=== PATIENT | female | born 1935 | race Caucasian/White ===

== ENCOUNTER → 2017-12-03 | Outpatient (CLI) | payer MEDICARE ==
[~2017-12-03] MED LIST: ATEN25TA PO; ATOR10TA69 PO; CALCIUM PLUS D PO; ESOM40CA PO; FEXO180T94 PO; GABA-531 PO; MONT10TA24 PO; SPIR25TA6 PO; ZOLP5TAB8 PO
== END | disposition home or self-care (01) ==
LOC: RAH 11:31
PROVIDERS: ATTEND Internal Medicine
DX: M47.898 Other spondylosis, sacral and sacrococcygeal region (principal); M47.896 Other spondylosis, lumbar region; M85.88 Other specified disorders of bone density and structure, other site; Z96.643 Presence of artificial hip joint, bilateral
CPT/HCPCS: 72100; 72220

== ENCOUNTER → 2018-07-13 | Outpatient (CLI) | payer MEDICARE | END | disposition home or self-care (01) | LOC: RAH 09:40 | PROVIDERS: ATTEND Internal Medicine Cardiovascular Disease | DX: I08.0 Rheumatic disorders of both mitral and aortic valves (principal) | CPT/HCPCS: 93306 ==

== ENCOUNTER → 2019-11-30 | Outpatient (CLI) | payer MEDICARE ==
[~2019-11-30] MED LIST changes: -MONT10TA24 PO; +MONT10TA26 PO
== END | disposition home or self-care (01) ==
LOC: RAH 12:56
PROVIDERS: ATTEND Emergency Medicine
DX: M25.512 Pain in left shoulder (principal); Z96.612 Presence of left artificial shoulder joint
CPT/HCPCS: 73030

== ENCOUNTER → 2021-01-09 | Outpatient (CLI) | payer MEDICARE ==
[~2021-01-09] MED LIST changes: +MONT-39 PO; -MONT10TA26 PO
== END | disposition home or self-care (01) ==
LOC: SHCH 12:53
PROVIDERS: ATTEND Internal Medicine Cardiovascular Disease
DX: R55 Syncope and collapse (principal); I70.8 Atherosclerosis of other arteries
CPT/HCPCS: 93880

== ENCOUNTER → 2021-12-09 | Outpatient (CLI) | payer MEDICARE | END | disposition home or self-care (01) | LOC: RAH 12:45 | PROVIDERS: ATTEND Orthopaedic Surgery | DX: S42.202A Unspecified fracture of upper end of left humerus, initial encounter for closed fracture (principal); M01.X1 Direct infection of shoulder joint in infectious and parasitic diseases classified elsewhere; X58.XXXA Exposure to other specified factors, initial encounter; Y93.89 Activity, other specified; Y92.89 Other specified places as the place of occurrence of the external cause; Y99.8 Other external cause status | CPT/HCPCS: 78315; A9503 ==

== ENCOUNTER → 2022-11-26 | Outpatient (CLI) | payer MEDICARE | END | disposition home or self-care (01) | LOC: LAB 11:02 | PROVIDERS: ATTEND Internal Medicine Cardiovascular Disease | DX: I48.0 Paroxysmal atrial fibrillation (principal) | CPT/HCPCS: 36415; 84484; 85378 ==

== ENCOUNTER → 2022-12-03 | Outpatient (CLI) | payer MEDICARE ==
[2022-12-03 12:15] LABS: CREATININE 1.8 mg/dL (0.5-1.5); POTASSIUM 4.6 mmol/L (3.5-5.1)
== END | disposition home or self-care (01) ==
LOC: LAB 11:05
PROVIDERS: ATTEND Internal Medicine Cardiovascular Disease
DX: I48.0 Paroxysmal atrial fibrillation (principal)
CPT/HCPCS: 36415; 80048

== ENCOUNTER → 2022-12-05 | Outpatient (CLI) | payer MEDICARE | END | disposition home or self-care (01) | LOC: RAH 11-27 14:26 | PROVIDERS: ATTEND Internal Medicine Cardiovascular Disease | DX: R79.1 Abnormal coagulation profile (principal); Z96.612 Presence of left artificial shoulder joint | CPT/HCPCS: 78580; 71046; A9540 ==

== ENCOUNTER → 2022-12-11 | Outpatient (CLI) | payer MEDICARE | END | disposition home or self-care (01) | LOC: RAH 12:35 | PROVIDERS: ATTEND Internal Medicine Cardiovascular Disease | DX: I08.0 Rheumatic disorders of both mitral and aortic valves (principal); I48.0 Paroxysmal atrial fibrillation | CPT/HCPCS: 93306 ==

== ENCOUNTER → 2023-02-23 | Outpatient (CLI) | payer MEDICARE | END | disposition home or self-care (01) | LOC: RAH 10:45 | PROVIDERS: ATTEND Internal Medicine | DX: Z01.818 Encounter for other preprocedural examination (principal) | CPT/HCPCS: 71046 ==